=== PATIENT | male | born 1935 | race Caucasian/White ===

== ENCOUNTER 2016-09-24 17:27 | Inpatient (IN) ==
[2016-09-24] MEDS ORDERED: LACTATED RINGERS 1,000 ML IV ONE (17:56)
[2016-09-24] MEDS ORDERED: ONDANSETRON 4 MG/2 ML VIAL IV STA (17:56)
[2016-09-24] MEDS ORDERED: ONDANSETRON 4 MG/2 ML VIAL ONE (18:02)
--- NOTE | 2016-09-24 18:03 | General Surg History&Physical ---
Assessment and Plan (1) Symptomatic cholelithiasis Status: Acute Assessment and plan: This patient has symptomatic cholelithiasis. Preliminary report on ultrasound is that there are stones present though I have not seen the images myself. We will go ahead and get lab work and give the patient some IV fluids and I do believe he will have to have his gallbladder removed to prevent worsening episodes in the future but whether this needs to happen on an inpatient or an outpatient basis will be determined based on the rest of his results of his tests. Current Visit: Yes History of Present Illness Chief complaint: Abdominal pain History of present illness: Mr. Lai is a 80 year old male with a history of reflux and esophageal stricture with dilation as well as a history of alcohol use who presents to the ER with the second episode of severe midepigastric pain that radiates through to the back with nausea and vomiting. Patient denies any jaundice or scleral icterus or changes in the quality of his urine or stool. He denies fevers but did have Reiger's with both episodes in the last one was 3 weeks ago and lasted about a day. Current episode started today this morning after he had some grilled cheese for breakfast and [place] He does admit to drinking a bloody Colleen last night. He denies any history of NSAID use but then later states that he used Aleve earlier today. He has never had any abdominal surgery but he does have a history of prostate cancer that was treated with radiation. Home Medications Medication Instructions Recorded Confirmed Type Allopurinol 100 mg PO DAILY 09/24/16 09/24/16 History Aspirin 325 mg PO DAILY 09/24/16 09/24/16 History Atenolol 1 tablet PO DAILY 09/24/16 09/24/16 History Allergies Allergy/AdvReac Type Severity Reaction Status Date / Time Tetracycline Allergy Unknown/Unable Verified 09/24/16 17:50 to obtain Medical,Surgical,& Family Hx - Medical History Cardio: History of: Hypertension Rheumatology: History of;: Gout Genitourinary: History of: Prostate Problems (prostate CA remission for 10 years ) - Social History Smoking Status: Never smoker Frequency of Alcohol Use: Occasionally Type of Drug Use: None Exam - Constitutional Vitals: Period Temp Pulse Resp BP Sys/[place] Pulse Ox Last 24 Hr 98.8 F-98.8 F 86-86 20-20 151-151/81-81 98 General appearance: no acute distress, over weight - Head Head exam: Present: normal inspection, normocephalic - Eye Eye exam: Present: EOMI Pupils: Present: SEBASTIEN - ENT ENT exam: Present: normal exam Mouth exam: Present: normal external inspection, normal voice - Neck Neck exam: Present: normal inspection, trachea midline - Respiratory Respiratory exam: Present: clear to auscultation bilaterally. Absent: accessory muscle use, chest wall tenderness - Cardiovascular Cardiovascular exam: Present: RRR. Absent: systolic murmur, tachycardia - GI/Abdominal GI/Abdominal exam: Present: normal bowel sounds, tenderness (There is minimal midepigastric tenderness.), soft, other (There is a reducible umbilical hernia present.). Absent: distended, Hobson's sign - Extremities Exam Extremities exam: Present: normal inspection, normal capillary refill - Back Exam Back exam: Present: normal inspection - Neurological Exam Neurological exam: Present: alert, oriented X3 Speech: Present: normal - Skin Skin exam: Present: normal color, warm - Constitutional Constitutional: Present: as per HPI - EENT Nose, mouth and throat: Present: as per HPI - Cardiovascular Cardiovascular: Present: as per HPI - Respiratory Respiratory: Present: as per HPI - Gastrointestinal Gastrointestinal: Present: as per HPI - Genitourinary Genitourinary: Present: as per HPI - Musculoskeletal Musculoskeletal: Present: as per HPI - Neurological Neurological: Present: as per HPI - Endocrine Endocrine: Present: as per HPI Hematologic/Lymphatic: Present: as per HPI Quality Measures - Stroke Onset of Symptoms Date: 09/24/16 Onset of Symptoms Time: 12:00
[2016-09-24] MEDS ORDERED: HYDROmorphone 2 MG/1 ML VIAL ONE (18:06)
--- NOTE | 2016-09-24 18:08 | Ultrasound Report ---
US gallbladder Indication: Recurrent right upper quadrant and epigastric pain. Comparison: None. Technique: Using transcutaneous probe, ultrasound imaging of the right upper quadrant was performed. Ultrasound images were captured and stored. Imaged structures include the liver, gallbladder, pancreas, right kidney, aorta, and inferior vena cava. Findings: Images submitted of the liver demonstrate hyperechoic liver parenchyma compared to the right renal cortex. No focal hepatic mass is present. Common bile duct is enlarged measuring 5.6 mm. Within the gallbladder, there is at least one echogenic focus with posterior shadowing near the neck of the gallbladder as well as small echogenic foci within the gallbladder fundus. Echogenic debris and/or sludge additionally is present. The gallbladder wall is thickened measuring 5.4 mm. On some images, a very thin curvilinear focus of hypoattenuation is noted along the exterior surface of the gallbladder wall. Small amount of pericholecystic fluid is not excluded. The right kidney measures 11.75 cm in craniocaudal dimension. The aorta and inferior vena cava are not included on study. The pancreas is not identified secondary to bowel gas. Impression: 1. Multiple gallstones are present. This finding in the setting of thickened gallbladder wall and perhaps a minimal amount of pericholecystic fluid is considered compatible with acute cholecystitis. 2. Findings compatible with hepatic steatosis. 09/24/2016 6:03 PM PROCEDURE INTERPRETED AT [facility] DEPARTMENT OF RADIOLOGY Final Report Signed by: Dr. Luis Daniel Alexander
[2016-09-24 18:11] LABS: Basophils % 0.1 % (0.0-0.8); Eosinophils % 0.1 % (0.00-10.9); Hematocrit 42.8 VOL% (42.0-52.0); Hemoglobin 14.9 GM/DL (14.0-18.0); Immature Granulocytes % 0.6 %; Immature Granulocytes Absolute 0.06 #; Lymphocytes # 0.3 10*3/uL (1.4-4.0); Lymphocytes % 2.6 % (21.2-54.2); Mean Corpuscular HGB Conc 34.8 GM/DL (32-36); Mean Corpuscular Hemoglobin 31 PG (27-34); Mean Corpuscular Volume 89.5 FL (87-102); Monocytes # 0.2 10*3/uL (0.11-0.8); Monocytes % 1.5 % (1.7-12.7); Neutrophils # 9.7 10*3/uL (1.4-7.4); Neutrophils % 95.1 % (38.7-73.9); Platelet Count 177 T/CUMM (130-400); Red Blood Count 4.78 MC/CUMM (3.8-5.5); Red Cell Distribution Width 13.2 % (9.3-17.3); White Blood Count 10.2 T/CUMM (4-12)
[2016-09-24] MEDS ORDERED: PIPERACILLIN/TAZOBACTAM 3,375 MG in SODIUM CHLORIDE 0.9% 100 ML IV STA (18:17)
--- NOTE | 2016-09-24 18:20 | Emergency Department Note ---
Arrival - Arrival Chief Complaint: Abdominal / Flank Pain ED Nursing Triage Note: pt complains of pain to right upper quadrant started today at noon, states that he had a baked chicken sandwich, co dryheaves, vomitted once, repots no fever but has been having chills and rigors. Mode of Arrival: Wheelchair Time Seen by Provider: 09/24/16 17:28 - History of Present Illness HPI Narrative: 80-year-old male brought in by family for recurrent epigastric or right upper quadrant pain, 2 episodes last 3 weeks, first episode lasted less than a day and resolved and today started has not yet resolved. Somewhat improved with belching but this is temporary. Denies fever trouble breathing chest pain or lower abdominal pain. Denies constipation or diarrhea. Denies history of abdominal surgeries. Allergies/Adverse Reactions: Allergies Allergy/AdvReac Type Severity Reaction Status Date / Time Tetracycline Allergy Unknown/Unable Verified 09/24/16 17:50 to obtain Home Medications: Home Medications Medication Instructions Recorded Confirmed Type Allopurinol 100 mg PO DAILY 09/24/16 09/24/16 History Aspirin 325 mg PO DAILY 09/24/16 09/24/16 History Atenolol 1 tablet PO DAILY 09/24/16 09/24/16 History Review of System - Review of System 12 point system: reviewed and no additional remarkable complaints except as stated Medical,Surgical,& Family Hx - Medical History Medical History: noncontributory Cardio: History of: Hypertension Rheumatology: History of;: Gout Genitourinary: History of: Prostate Problems (prostate CA remission for 10 years ) - Social History Smoking Status: Never smoker Frequency of Alcohol Use: Occasionally Type of Drug Use: None Exam Physical Examination: Well-appearing elderly male, no acute distress. Vital signs as documented.Lungs are clear bilaterally. Cardiovascular regular rate and rhythm. Abdomen soft with epigastric and mild right upper quadrant tenderness without rigidity or rebound. Skin exam unremarkable. Vital Signs: Vital Signs Temperature 98.8 F 09/24/16 17:27 Pulse Rate 86 09/24/16 17:27 Respiratory Rate 20 09/24/16 17:27 Blood Pressure 151/81 09/24/16 17:27 O2 Sat by Pulse Oximetry 98 09/24/16 17:27 Course Course Narrative: Patient evaluated by general surgeon transportation analyst who will admit for probable cholecystectomy based on ultrasound of gallstones and recurrent symptoms. Results - Labs CBC & BMP: 09/24/16 17:55 Lab Results: I have reviewed the patients labs - Diagnostic Findings Procedure: Ultrasound: report reviewed by me (gallstones, poss choleycystitis) Disposition Clinical Impression: Symptomatic cholelithiasis, Abdominal pain Case discussed with: patient Disposition: Still a Patient Condition: Stable Time of Disposition: 18:19
[2016-09-24 18:33] LABS: Band Neutrophils 7 % (0-10); Lymphocytes 1 % (20-55); Myelocytes 1 %; Platelet Estimate Adequate; Segmented Neutrophils 89 % (50-85); Total Cells Counted 100
--- NOTE | 2016-09-24 18:57 | XRay Report ---
XR chest 1V Indication: Chest pain. Comparison: Chest x-ray 02/19/2009 Technique: Portable AP chest was performed. Findings: The heart is stable in size compared to previous study. Mild ectasia of the thoracic aorta is stable. Pulmonary vasculature demonstrates no specific abnormality. Hilar structures demonstrate fairly symmetric appearance. The lungs appear clear. Bones and soft tissues demonstrate no evidence of acute pathology. Impression: 1. No evidence of acute pathology. 09/24/2016 6:40 PM PROCEDURE INTERPRETED AT [facility] DEPARTMENT OF RADIOLOGY Final Report Signed by: Dr. Luis Daniel Alexander
[2016-09-24 19:35] LABS: Albumin 3.7 G/DL (3.4-5.0); Bilirubin,Total 2.9 MG/DL (0.2-1.0); Calcium 8.7 MG/DL (8.5-10.1); Osmolality,Calculated 277.8 MOS/KG (273-304); Potassium 3.9 MMOL/L (3.5-5.1); Total Protein 6.6 G/DL (6.4-8.3)
[2016-09-24 21:25] LABS: INR 1.1; PT Patient Result 11.5 SECS
[2016-09-24] MEDS: LACTATED RINGERS 1,000 ML IV SCH (21:53)
[2016-09-25 01:27] LABS: Basophils % 0.1 % (0.0-0.8); Hematocrit 38.2 VOL% (42.0-52.0); Hemoglobin 12.7 GM/DL (14.0-18.0); Immature Granulocytes % 0.8 %; Immature Granulocytes Absolute 0.14 #; Lymphocytes # 0.3 10*3/uL (1.4-4.0); Lymphocytes % 1.7 % (21.2-54.2); Mean Corpuscular HGB Conc 33.2 GM/DL (32-36); Mean Corpuscular Hemoglobin 30 PG (27-34); Mean Corpuscular Volume 90.5 FL (87-102); Monocytes # 1.3 10*3/uL (0.11-0.8); Monocytes % 7.2 % (1.7-12.7); Neutrophils # 16.7 10*3/uL (1.4-7.4); Neutrophils % 90.2 % (38.7-73.9); Platelet Count 153 T/CUMM (130-400); Red Blood Count 4.22 MC/CUMM (3.8-5.5); Red Cell Distribution Width 13.5 % (9.3-17.3); White Blood Count 18.5 T/CUMM (4-12)
[2016-09-25 01:34] LABS: INR 1.1; Partial Thromboplastin Time 25.9 SECS (0-40)
[2016-09-25 01:52] LABS: Bilirubin,Direct 2.9 MG/DL (0.0-0.20); Total Protein 5.2 G/DL (6.4-8.3)
[2016-09-25 01:53] LABS: Osmolality,Calculated 280.7 MOS/KG (273-304); Potassium 4.2 MMOL/L (3.5-5.1)
[2016-09-25] MEDS: PIPERACILLIN/TAZOBACTAM 3,375 MG in SODIUM CHLORIDE 0.9% 100 ML IV SCH ×3 (02:38→18:45)
[2016-09-25] MEDS ORDERED: LACTATED RINGERS 1,000 ML IV ONE ×2 (06:59→13:15)
[2016-09-25] MEDS: LACTATED RINGERS 1,000 ML IV SCH ×2 (07:43→18:45)
--- NOTE | 2016-09-25 08:10 | EKG Report ---
Stationary ECG Study [facility] Test Date: 09/24/2016 6:45:53 PM Pat Name: ARI CRUZ Department: Room: 341 Gender: M Sort Manager: : [id number] Requested by: Gus Azar Order Number: [id number] Reading MD: DOMINIQUE HUDDLESTON Intervals [place] Rate: 92 P: 47 DC: 202 QRS: -39 QRSD: 98 T: 57 QT: 319 QTc: 369 Interpretive Statements SINUS RHYTHM MARKED LEFT AXIS DEVIATION LOW QRS VOLTAGE IN PRECORDIAL LEADS Electronically Signed On 09-26-16 22:21:13 CDT by DOMINIQUE HUDDLESTON [email or web address]
[2016-09-25] MEDS: ASPIRIN 325 MG TABLET PO SCH (08:17)
[2016-09-25 08:22] LABS: Band Neutrophils 10 % (0-10); Lymphocytes 3 % (20-55); Myelocytes 1 %; Segmented Neutrophils 81 % (50-85); Total Cells Counted 100
[2016-09-25 08:23] LABS: Hypochromasia Slight; Ovalocytes Slight; Platelet Estimate Normal
[2016-09-25] MEDS: ATENOLOL 25 MG TABLET PO SCH (08:30)
[2016-09-25] MEDS: PANTOPRAZOLE 40 MG VIAL IV SCH (08:31)
[2016-09-25] MEDS ORDERED: SUCCINYLCHOLINE 200 MG/10 ML VIAL ONE (11:15)
[2016-09-25] MEDS ORDERED: ETOMIDATE 20 MG/10 ML VIAL IV ONE (11:15)
[2016-09-25] MEDS ORDERED: LIDOCAINE 1% 5 ML VIAL ONE (11:15)
[2016-09-25] MEDS ORDERED: ROCURONIUM 100 MG/10 ML VIAL IV ONE (11:15)
[2016-09-25] MEDS ORDERED: ONDANSETRON 4 MG/2 ML VIAL ONE ×2 (11:15→12:31)
--- NOTE | 2016-09-25 12:14 | General Surgery Progress Note ---
Assessment and Plan (1) Symptomatic cholelithiasis Status: Acute Assessment and plan: The patient is pain-free this morning but his white blood cell count did go up to 18,000 and his creatinine bumped a little bit to 1.4. He will be resuscitated today with another liter of LR. His bilirubin also went up and his transaminases went down a little bit but his alkaline phosphatase is also rising. He had a borderline bile duct of 6 mm which is really not enlarged for his age but based on his worsening bilirubin I would like to get Dr. Hudson to see him for a preoperative ERCP. I will discuss this with Dr. Hudson shortly. Current Visit: Yes Subjective Patient reports: Present: no new complaints, feels better, pain is less, tolerating liquids well, afebrile. Absent: nausea, vomiting, fever Exam - Constitutional Vitals: Period Temp Pulse Resp BP Sys/[place] Pulse Ox Last 24 Hr 98.2 F-98.8 F 77-86 17-20 99-151/57-81 97-98 General appearance: no acute distress, over weight - Head Head exam: Present: normal inspection, normocephalic - Eye Eye exam: Present: EOMI. Absent: scleral icterus Pupils: Present: SEBASTIEN - ENT ENT exam: Present: normal exam Mouth exam: Present: normal external inspection, normal voice - Neck Neck exam: Present: normal inspection, trachea midline - Respiratory Respiratory exam: Present: clear to auscultation bilaterally. Absent: accessory muscle use, chest wall tenderness - Cardiovascular Cardiovascular exam: Present: RRR. Absent: systolic murmur, tachycardia - GI/Abdominal GI/Abdominal exam: Present: soft. Absent: Hobson's sign, tenderness, rebound - Extremities Exam Extremities exam: Present: normal inspection, normal capillary refill - Back Exam Back exam: Present: normal inspection - Neurological Exam Neurological exam: Present: alert, oriented X3 Speech: Present: normal - Skin Skin exam: Present: normal color, warm Results - Labs CBC & BMP: 09/25/16 00:18 09/25/16 00:18 Quality Measures - Stroke Onset of Symptoms Date: 09/24/16 Onset of Symptoms Time: 12:00
--- NOTE | 2016-09-25 12:19 | Gastrointestinal Consult Note ---
Addendum entered and electronically signed by Rufus Hudson MD 09/25/16 10: 16: Patient seen and examined. Symptomatic gallstones with high suspicion for possible common duct stone. Will proceed with ERCP today to clear the duct in preparation for cholecystectomy as discussed. Risks, benefits and alternatives have been reviewed with the patient and the family and they are agreeable to proceed. Abdomen is soft with mild epigastric tenderness no rebound Agree with additional history physical findings per Sherrill Bruce [facility] as below. Original Note: <Sherrill Raman D - Last Filed: 09/25/16 09:24> Assessment and Plan (1) Symptomatic cholelithiasis Status: Acute Assessment and plan: 09/25-sudden onset of upper abdominal pain with associated nausea vomiting. Findings of elevated LFTs and cholelithiasis. Proceed with ERCP today. Plan an addendum to follow by Dr. Hudson. Current Visit: Yes History of Present Illness Chief complaint: Abdominal pain History of present illness: Mr. Lai is a 80 year old male who was admitted to the hospital last night after sudden onset of upper abdominal pain with nausea vomiting. Patient states that he was in his usual state of health until yesterday around lunchtime. He states that he did not feel very well however felt like maybe he needed to eat lunch. Shortly after eating lunch she had an onset of upper abdominal pain radiating to his back. He states that the pain improved and he went on to play golf however shortly after starting he had onset of nausea and vomiting. He then presented to the emergency room for further evaluation. Patient states that he has had this episode once before 3 weeks prior however it only occurred one time and felt at that time it was possibly a stomach virus. He denies any family history of gallbladder disease. Upon admission he was found to have elevated liver enzymes. Gallbladder ultrasound showed multiple gallstones with thickened gallbladder wall compatible with acute cholecystitis as well as hepatic steatosis. Common bile duct was 5.6 mm. WBC elevated today at 18.5. Bilirubin is 4, AST 354, ALT 359, and alkaline phosphatase 144. Lipase level was unremarkable at 322. Dr. Bella is consulted with the patient and at this time the plan is to proceed with laparoscopic cholecystectomy on tomorrow. Dr. Hudson at bedside and discussed proceeding with the ERCP today. Family and patient are in agreement. Patient does have a history of esophageal stricture in the past with dilation and is requesting to have repeat dilation today if findings of stricture noted. He denies any regular dysphagia symptoms at this time. Home Medications Medication Instructions Recorded Confirmed Type Allopurinol 100 mg PO DAILY 09/24/16 09/24/16 History Aspirin 325 mg PO DAILY 09/24/16 09/24/16 History Atenolol 1 tablet PO DAILY 09/24/16 09/24/16 History Allergies Allergy/AdvReac Type Severity Reaction Status Date / Time Tetracycline Allergy Unknown/Unable Verified 09/24/16 17:50 to obtain Medical,Surgical,& Family Hx - Medical History Cardio: History of: Hypertension HEENT: History of: Eye Problem (bilateral cataract removal) Rheumatology: History of;: Gout Genitourinary: History of: Prostate Problems (prostate CA remission for 10 years ) Gastrointestinal: History of: GERD - Surgical History HEENT Surgeries: Surgical HX of: Tonsilectomy & Adenoidectomy Abdominal Surgeries: Surgical HX of: Colonoscopy, EGD Orthopedic Surgeries: Surgical HX of;: Orthopedic Surgery (Left ankle ORIF, hardware removal) - Family History Family History: Reports;: Family Diabetes (Father, late onset diabetic) - Social History Smoking Status: Never smoker Frequency of Alcohol Use: Occasionally Type of Drug Use: None 12 point system: reviewed and no additional remarkable complaints except as stated - Constitutional Constitutional: Present: as per HPI - EENT Eyes: Present: as per HPI Ears: Present: as per HPI Nose, mouth and throat: Present: as per HPI - Cardiovascular Cardiovascular: Present: as per HPI - Respiratory Respiratory: Present: as per HPI - Gastrointestinal Gastrointestinal: Present: as per HPI, abdominal pain, nausea, vomiting - Genitourinary Genitourinary: Present: as per HPI - Musculoskeletal Musculoskeletal: Present: as per HPI - Neurological Neurological: Present: as per HPI - Psychiatric Psychiatric: Present: as per HPI - Endocrine Endocrine: Present: as per HPI - Hematologic/Lymphatic Hematologic/Lymphatic: Present: as per HPI Exam - Constitutional Vitals: Period Temp Pulse Resp BP Sys/[place] Pulse Ox Last 24 Hr 97.0 F-98.8 F 63-86 17-20 99-151/53-81 97-100 General appearance: normal weight, no acute distress - Head Head exam: Present: normal inspection, normocephalic - Eye Eye exam: Present: other (Lids and conjunctive are unremarkable). Absent: scleral icterus - ENT ENT exam: Present: normal exam, normal oropharynx - Neck Neck exam: Present: normal inspection - Respiratory Respiratory exam: Present: clear to auscultation bilaterally. Absent: rales, rhonchi, wheezes - Cardiovascular Cardiovascular exam: Present: regular rate and rhythm. Absent: diastolic murmur , JVD, systolic murmur - GI/Abdominal GI/Abdominal exam: Present: normal bowel sounds, soft. Absent: ascites, distended, mass, organomegaly, tenderness - Extremities Exam Extremities exam: Present: normal inspection, full ROM - Back Exam Back exam: Present: normal inspection - Neurological Exam Neurological exam: Present: alert, oriented X3 - Psychiatric Psychiatric exam: Present: normal affect, normal mood - Skin Skin exam: Present: normal color, warm, dry Results - Labs CBC & BMP: 09/25/16 00:18 09/25/16 00:18 Lab Results: I have reviewed the past 24 hour labs - Diagnostic Findings Procedure: Ultrasound: report reviewed by me Quality Measures - Stroke Onset of Symptoms Date: 09/24/16 Onset of Symptoms Time: 12:00 <Rufus Hudson - Last Filed: 09/25/16 10:15> History of Present Illness History of present illness: Mr. Lai is a 80 year old male Exam - Constitutional Vitals: Period Temp Pulse Resp BP Sys/[place] Pulse Ox Last 24 Hr 97.0 F-98.8 F 63-86 17-20 99-151/53-81 97-100 Results - Labs CBC & BMP: 09/25/16 00:18 09/25/16 00:18
--- NOTE | 2016-09-25 12:24 | Operative Note ---
Date of procedure: 09/25/16 Pre-op diagnosis: Cholelithiasis was suspected choledocholithiasis Procedure: Endoscopic retrograde cholangiopancreatography 80-year-old gentleman admitted with abdominal pain thought to have symptomatic cholelithiasis with abnormal liver tests suspicious for choledocholithiasis. Now for ERCP to further evaluate. Informed symptoms obtained from the patient. He was sedated with general anesthesia per anesthesia protocol. Patient placed in the prone position the Olympus duodenal scope was inserted through the normal-appearing esophagus stomach duodenum to what appears to be a fairly flat ampulla that is difficult to approach with a short scope requiring a bit of a longer scope to reach this area. There appears to have possibly a prior sphincterotomy performed although I have no history to suggest this. The sphincterotome was utilized and the common bile duct was easily cannulated revealing a nondilated common bile duct common hepatic duct and normal intrahepatic ductal radicles. The cystic duct was patent and multiple large gallstones were seen in the gallbladder consistent with cholelithiasis. Multiple views were obtained and was no evidence to suggest any filling defects or strictures and it was elected to not proceed with sphincterotomy at this time with good drainage of the duct. No pancreatogram was obtained. The procedure terminated patient discharge recovery in good condition Postop diagnosis: 1. Cholelithiasis without evidence of choledocholithiasis on ERCP. Proceed with cholecystectomy per Dr. Bella's plan. Surgeon / Physician: Rufus Hudson Results - Labs CBC & BMP: 09/25/16 00:18 09/25/16 00:18 Discharge Plan - Discharge Medications No Action Atenolol 1 tablet PO DAILY Aspirin 325 mg PO DAILY Allopurinol 100 mg PO DAILY - Follow Up or Referral - Forms/Instructions
--- NOTE | 2016-09-25 12:24 | Anesthesia Post-Op ---
Anesthesia Post OP - Post Ansesthetic Evaluation Patient seen in post op: Yes Resp: within normal limits CV: within normal limits Mental: within normal limits Temp: within normal limits [id number]: within normal limits Nausea and Vomiting: within normal limits Pain: within normal limits
[2016-09-25] MEDS: HYDROmorphone 2 MG/1 ML VIAL IV PRN (12:44)
[2016-09-25] MEDS: ONDANSETRON 4 MG/2 ML VIAL IV PRN ×2 (12:47→20:01)
[2016-09-25] MEDS ORDERED: TISSUE ADHESIVE 1 EACH APPLICATOR TOP ONE (13:02)
[2016-09-25] MEDS ORDERED: BUPIVACAINE MPF 0.25% /EPI 30 ML VIAL ONE (13:03)
[2016-09-25] MEDS ORDERED: MEPERIDINE 50 MG/1 ML VIAL IV ONE (13:10)
--- NOTE | 2016-09-25 13:18 | Event Note ---
I went to see this patient following ERCP and he had decrease oxygen saturations with rigors and chills. Temp, HR, and BP was normal. Complaining of back pains. No nausea or vomiting. ERCP with no CBD stones and cystic duct was patent. Chest is clear, heart is regular. No chest pain. Will move to ICU 108 and obtain labwork and imaging as well as administer demerol and LR bolus.
--- NOTE | 2016-09-25 14:08 | Fluoroscopy Report ---
Exam: [place] ERCP Date: 09/25/2016 9:22 AM Comparison: Gallbladder ultrasound 09/24/2016 Indication: Elevated liver function tests, gallstones Technique:[Fluoroscopy time of 2.03 minutes documented. 7 films were obtained.] Findings: 18 cc of nonionic contrast injected into the nondilated ducts by Dr. Hudson. Sphincterotomy performed with advancement of guidewire and balloon catheter. Evidence of cholelithiasis with patent cystic duct. No persistent filling defects are identified in the bile ducts with no stone extraction. No contrast injected into the pancreatic duct. Impression: Cholelithiasis with no evidence of choledocholithiasis or other pathology. PROCEDURE INTERPRETED AT [facility] DEPARTMENT OF RADIOLOGY Final Report Signed by: Dr. Colleen Woody
--- NOTE | 2016-09-25 14:09 | XRay Report ---
Portable chest Date: 09/25/2016 Clinical history: Low O2, chills Comparison: 09/24/2016 Technique: Portable AP sitting chest Findings: The heart remains minimally enlarged with left ventricular prominence and uncoiling of the aorta. Minimal atelectasis/infiltration in the left mid to lower lung zone. Stable mediastinum with degenerative changes. Impression: Cardiomegaly with left ventricular prominence and uncoiling of the aorta. Minimal atelectasis/infiltration in the left mid to lower lung zone. PROCEDURE INTERPRETED AT [facility] DEPARTMENT OF RADIOLOGY Final Report Signed by: Dr. Colleen Woody
[2016-09-25 14:20] LABS: Basophils % 0.2 % (0.0-0.8); Eosinophils # 0.1 10*3/uL (0.0-0.87); Eosinophils % 0.7 % (0.00-10.9); Hematocrit 36.9 VOL% (42.0-52.0); Hemoglobin 12.6 GM/DL (14.0-18.0); Immature Granulocytes % 1.5 %; Immature Granulocytes Absolute 0.15 #; Lymphocytes # 0.2 10*3/uL (1.4-4.0); Lymphocytes % 1.8 % (21.2-54.2); Mean Corpuscular HGB Conc 34.1 GM/DL (32-36); Mean Corpuscular Hemoglobin 31 PG (27-34); Mean Corpuscular Volume 90.4 FL (87-102); Mean Platelet Volume 9.4 FL (9.6-12.0); Monocytes # 0.1 10*3/uL (0.11-0.8); Monocytes % 1.2 % (1.7-12.7); Neutrophils # 9.7 10*3/uL (1.4-7.4); Neutrophils % 94.6 % (38.7-73.9); Platelet Count 132 T/CUMM (130-400); Red Blood Count 4.08 MC/CUMM (3.8-5.5); Red Cell Distribution Width 13.8 % (9.3-17.3); White Blood Count 10.3 T/CUMM (4-12)
[2016-09-25 14:51] LABS: Calcium 7.7 MG/DL (8.5-10.1); Osmolality,Calculated 277.7 MOS/KG (273-304); Potassium 3.8 MMOL/L (3.5-5.1); Total Protein 5.3 G/DL (6.4-8.3)
[2016-09-25 15:04] LABS: Band Neutrophils 13 % (0-10); Burr Cells Few; Eosinophils 2 % (0-10); Lymphocytes 5 % (20-55); Platelet Estimate Decreased; Poikilocytosis 1+; Segmented Neutrophils 80 % (50-85); Total Cells Counted 100
[2016-09-25 15:54] LABS: ABG Base Excess -0.4 MMOL/L (-2.5-2.5); ABG HCO3 24.1 MMOL/L (20-26); ABG Oxygen Saturation 98.1 % (95-100); ABG PCO2 39.5 MM HG (35-48); ABG PH 7.398 (7.35-7.45); ABG TCO2 21.4 MMOL/L (23-27); Allen Test Positive
[2016-09-25 16:00] LABS: Apearance,Urine CLEAR (Clear); Bacteria,Urine Occasional /HPF (Few); Blood, Urine Negative (Negative); Glucose,Urine (UA) Negative (Negative); Ketones,Urine Negative (Negative); Nitrite,Urine Negative (Negative); Protein,Urine 30 MG/DL; RBC,Urine 3 /HPF (0-4); Squamous Epithelial Cell,Urine Occasional /HPF (0-10); Urine Color Amber (Yellow); Urine Specific Gravity 1.019 (1.001-1.035); WBC,Urine 5 /HPF (0-6)
[2016-09-25 16:01] LABS: Bilirubin,Urine Moderate mg/dL (Negative)
--- NOTE | 2016-09-25 18:24 | Event Note ---
Patient seen at 2 PM following episode of some hypotension and clamminess. He appeared stable at that time. Currently his symptoms have resolved since that time. He currently is having no complaints of pain is afebrile he is saturation is good. He was noted to have some question of left lower lobe infiltrate on repeat chest x-ray which may simply represent some atelectasis but also could be some infiltrate that has now become visible with hydration. He is currently on antibiotics for the possibility of cholecystitis that may have been exacerbated by ERCP. I discussed with Dr. Bella. Agree with plans to proceed with cholecystectomy. I think he has passed a common duct stone given the patulousness of his ampulla. We did discuss that his duodenum is a little bit fixed and we were not able to adequately evaluate the pancreas and he will take some care to look in that region during surgery. Possibly repeat CT can certainly be entertained. Abdomen soft lungs clear to auscultation heart regular rate and rhythm Repeat lab bilirubin has gone up some which again I suspect may be related to cholecystitis we will continue to observe. Continue antibiotics. And proceed with cholecystectomy per Dr. marcus plan. Can consider CT scan if symptoms persist.
[2016-09-25] MEDS: ALBUTEROL/IPRATROPIUM 3 ML NEB RESP TX SCH (19:21)
[2016-09-25] MEDS: diphenhydrAMINE CAP 50 MG CAPSULE PO PRN (20:05)
[2016-09-26] MEDS: ALBUTEROL/IPRATROPIUM 3 ML NEB RESP TX SCH ×4 (00:36→19:35)
[2016-09-26] MEDS: LACTATED RINGERS 1,000 ML IV SCH ×3 (02:50→10:10)
[2016-09-26] MEDS: PIPERACILLIN/TAZOBACTAM 3,375 MG in SODIUM CHLORIDE 0.9% 100 ML IV SCH ×3 (03:09→19:27)
[2016-09-26 06:38] LABS: Basophils % 0.2 % (0.0-0.8); Eosinophils # 0.2 10*3/uL (0.0-0.87); Eosinophils % 1.5 % (0.00-10.9); Hematocrit 35.3 VOL% (42.0-52.0); Hemoglobin 11.9 GM/DL (14.0-18.0); Immature Granulocytes % 1.5 %; Immature Granulocytes Absolute 0.24 #; Lymphocytes # 0.7 10*3/uL (1.4-4.0); Lymphocytes % 4.7 % (21.2-54.2); Mean Corpuscular HGB Conc 33.7 GM/DL (32-36); Mean Corpuscular Hemoglobin 31 PG (27-34); Mean Platelet Volume 9.5 FL (9.6-12.0); Monocytes # 1.1 10*3/uL (0.11-0.8); Monocytes % 6.7 % (1.7-12.7); Neutrophils # 13.5 10*3/uL (1.4-7.4); Neutrophils % 85.4 % (38.7-73.9); Platelet Count 108 T/CUMM (130-400); Red Blood Count 3.88 MC/CUMM (3.8-5.5); White Blood Count 15.8 T/CUMM (4-12)
--- NOTE | 2016-09-26 06:47 | XRay Report ---
Referring Physician: TEODORA Zavala Exam: XR chest 1V portable Date: September 26, 2016 at 2:51 AM Reason: Follow-up infiltrate Comparison: Chest one view portable September 25, 2016 Findings: The cardiac silhouette is again mildly enlarged, and there is persistent mild elevation of the right hemidiaphragm. There are minimal opacities within both lower lung zones, mainly on the left. This likely represents atelectasis, but pneumonia is difficult to exclude within the left lower lung zone. No pneumothorax is identified, but there may be mild left pleural fluid. The osseous structures appear stable. Impression: There may be mild left pleural fluid today. The study is otherwise similar to before. PROCEDURE INTERPRETED AT [facility] DEPARTMENT OF RADIOLOGY Final Report Signed by: Dr. Laura Downing
[2016-09-26] MEDS ORDERED: BUPIVACAINE MPF 0.25% /EPI 30 ML VIAL ONE (06:53)
[2016-09-26 07:10] LABS: Albumin 2.7 G/DL (3.4-5.0); Bilirubin,Total 5.8 MG/DL (0.2-1.0); Calcium 7.8 MG/DL (8.5-10.1); Potassium 3.7 MMOL/L (3.5-5.1); Total Protein 5.2 G/DL (6.4-8.3)
[2016-09-26 07:17] LABS: Band Neutrophils 24 % (0-10); Eosinophils 1 % (0-10); Hypochromasia Slight; Lymphocytes 7 % (20-55); Microcytosis 1+; Platelet Estimate Decreased; Segmented Neutrophils 61 % (50-85); Total Cells Counted 100
--- NOTE | 2016-09-26 07:28 | Event Note ---
Patient in the waiting area for surgery. Discussed with Dr. Bella agree with plans for cholecystectomy. Hemodynamically stable stable with no history of difficulties overnight. Liver tests remain elevated suspect from his acute cholecystitis would expect improvement following surgery. I will be out of town until Thursday call coverage if needed.
--- NOTE | 2016-09-26 07:30 | General Surgery Progress Note ---
Assessment and Plan (1) Symptomatic cholelithiasis Status: Acute Assessment and plan: This is a delayed entry note. I saw the patient at 6:30 in the morning prior to his operation. His bilirubin is improving and we have plans for laparoscopic cholecystectomy with cholangiogram today. Current Visit: Yes Subjective Patient reports: Present: no new complaints, feels better, pain is less, tolerating liquids well, afebrile Exam - Constitutional Vitals: Period Temp Pulse Resp BP Sys/[place] Pulse Ox Last 24 Hr 95.9 F-98.1 F 63-87 11-26 86-131/61-082 92-100 General appearance: no acute distress, over weight - Head Head exam: Present: normal inspection, normocephalic - Eye Eye exam: Present: EOMI Pupils: Present: SEBASTIEN - ENT ENT exam: Present: normal exam Mouth exam: Present: normal external inspection, normal voice - Neck Neck exam: Present: normal inspection, trachea midline - Respiratory Respiratory exam: Present: clear to auscultation bilaterally. Absent: accessory muscle use, chest wall tenderness - Cardiovascular Cardiovascular exam: Present: RRR. Absent: systolic murmur, tachycardia - GI/Abdominal GI/Abdominal exam: Present: soft. Absent: Hobson's sign, tenderness, rebound - Extremities Exam Extremities exam: Present: normal inspection, normal capillary refill - Back Exam Back exam: Present: normal inspection - Neurological Exam Neurological exam: Present: alert, oriented X3 Speech: Present: normal - Skin Skin exam: Present: normal color, warm Results - Labs CBC & BMP: 09/26/16 06:27 09/26/16 06:27 - Diagnostic Findings Procedure: Chest x-ray: image reviewed by me, report reviewed by me (atelectasis ) Quality Measures - Stroke Onset of Symptoms Date: 09/24/16 Onset of Symptoms Time: 12:00
--- NOTE | 2016-09-26 08:25 | Fluoroscopy Report ---
Referring Physician: Ryan Bella Exam: [place] cholangiogram in surgery Date: September 26, 2016 Reason: Abdominal pain Comparison: ERCP September 25, 2016, gallbladder ultrasound September 24, 2016 Findings: 197 images of the right abdomen were provided after performance of an intraoperative cholangiogram. Fluoroscopy time was 10 seconds. The extrahepatic and intrahepatic bile ducts are normal in caliber with no stricture identified. There are several small filling defects within the common hepatic and common bile duct, which were favored to represent air during surgery. This makes evaluation for a biliary stone difficult. Impression: Images are presumed satisfactory for the purposes of the procedure. PROCEDURE INTERPRETED AT [facility] DEPARTMENT OF RADIOLOGY Final Report Signed by: Dr. Laura Downing
[2016-09-26] MEDS ORDERED: SUGAMMADEX 200 MG/2 ML VIAL IV ONE (09:01)
--- NOTE | 2016-09-26 09:07 | Operative Note ---
Date of procedure: 09/26/16 Pre-op diagnosis: Acute cholecystitis Post-op diagnosis: same Procedure: Preoperative diagnosis Acute cholecystitis with abnormal bilirubin Postoperative diagnosis Same Procedures performed Laparoscopic cholecystectomy with intraoperative cholangiogram Findings Acute and chronic cholecystitis was seen. The critical view of safety was obtained prior to placing clips on the cystic duct and cystic artery. Cholangiogram revealed no filling defects although there were some air bubbles that were not concerning for stones at all. There was good flow into the duodenum. There was no strictures of the bile duct. The pancreatic duct was not visualized. The first and second portion of the duodenum were palpated as was the head of the pancreas through the stomach and lesser sac and there was no firmness in the retroperitoneum or bulging in the retroperitoneum. There were no abnormalities on diagnostic laparoscopy throughout the abdomen. The patient had some edema of his cords so he was given Decadron 10 mg IV by the anesthesia team and we will watch him in the ICU tonight to make sure there are no airway issues. We will make sure his head is elevated as well. Complications None apparent Specimen Gallbladder Anesthesia GETA Blood loss 5 mL Indications Acute cholecystitis with elevated bilirubin. The risks, benefits, and alternatives of the operation were discussed with the patient in detail, and the expected outcomes were reviewed. In particular, the risk of bowel injury, liver injury, bile duct leak and bile duct injury, as well as pancreatitis and retained or drop stones were discussed in detail. All the patient's questions were answered. She like to proceed with the operation. Description of procedure The patient was taken to the operating room and transferred to the operating table in the supine position. Pressure points were padded and SCDs were placed to bilateral lower extremities. General endotracheal anesthesia was administered. The abdomen was prepped chlorhexidine and draped sterilely. Preoperative antibiotics were administered, a timeout was performed. The abdomen was entered in a supraumbilical location of the Veress needle. The skin incision was made in the supraumbilical location with a 11 blade scalpel after local anesthetic was administered. Umbilical stalk was grasped with a penetrating towel clip. A Veress needle was used to enter the peritoneal cavity confirmed by double click technique. Aspiration was negative. Saline drop test confirmed intraperitoneal location. The abdomen was insufflated to 15 mmHg with an initial insufflation pressure of 2 mmHg. The Veress needle was removed and a 5 mm trocar was placed blindly. The towel clip was removed. Diagnostic laparoscopy was performed. There is no evidence of Veress needle or trocar injury. The patient was placed in reverse Trendelenburg and left side rolled down position. Under direct visualization, and after local anesthetic was administered, an 11 mm midepigastric trocar and 2 right subcostal 5 mm trochars were placed. There was acute inflammation of the gallbladder and it was very adherent to the duodenum and colon but these adhesions came down easily and there was no firmness in the duodenum or the colon mesentery. The first and second portion of the duodenum were palpated as was the head of the pancreas through the stomach and lesser sac and there was no firmness or bulging in the retroperitoneum at these locations. There were no peritoneal implants or abnormalities on diagnostic laparoscopy. The gallbladder was grasped at the fundus and infundibulum. The cystic plate peritoneum was dissected into the critical view of safety was obtained. The cystic duct and cystic artery were clipped twice initially and once laterally and divided laparoscopically with scissors between clips. Gallbladder was removed from the gallbladder fossa using hook electrocautery. The gallbladder was very friable and tore some but no stones were spilled. There was no obvious gangrene of the gallbladder. The gallbladder was placed in a Endo Catch retrieval bag through the 11 mm trocar and removed through the trocar with a small amount of extension of the fascial incision at the midepigastrium. The gallbladder fossa was suction irrigated until the effluent was clear. The CO2 was released from the abdomen and the trochars were removed. The fascial defect was closed in 2 layers at the midepigastric trocar site with 0 Vicryl sutures. The posterior fascia was closed with a [id number]-[id number] suture in the anterior fascia was closed afterwards with another vxhrwz-go-pnkyu suture. The skin incisions were closed with 4-0 Monocryl subcuticular suture and sterile skin glue. The patient was awakened from anesthesia and transferred to recovery. Postoperative plan Advance diet as tolerated Elevate head of bed and monitor for airway problems Pain control Implants: surgicel Anesthesia: GETA Surgeon / Physician: Ryan Bella Estimated blood loss: minimal Specimens: none sent (gallbladder) Condition: stable Disposition: ICU Results - Labs CBC & BMP: 09/26/16 06:27 09/26/16 06:27 Discharge Plan - Discharge Medications No Action Atenolol 1 tablet PO DAILY Aspirin 325 mg PO DAILY Allopurinol 100 mg PO DAILY - Follow Up or Referral - Forms/Instructions
[2016-09-26] MEDS ORDERED: ePHEDrine 50 MG/ML AMP ONE (09:23)
[2016-09-26] MEDS ORDERED: SEVOFLURANE 1 UNIT/15 MINUTE INH ONE (09:25)
[2016-09-26] MEDS ORDERED: ONDANSETRON 4 MG/2 ML VIAL ONE (09:25)
[2016-09-26] MEDS ORDERED: DEXAMETHASONE 10 MG/1 ML VIAL ONE (09:25)
[2016-09-26] MEDS ORDERED: PROPOFOL 200 MG/20 ML VIAL IV ONE (09:25)
[2016-09-26] MEDS ORDERED: NEOSTIGMINE 10 MG/10 ML VIAL ONE (09:26)
[2016-09-26] MEDS ORDERED: ROCURONIUM 100 MG/10 ML VIAL IV ONE (09:26)
[2016-09-26] MEDS ORDERED: ETOMIDATE 20 MG/10 ML VIAL IV ONE (09:26)
[2016-09-26] MEDS ORDERED: GLYCOPYRROLATE 0.4 MG/2 ML VIAL ONE (09:26)
[2016-09-26] MEDS ORDERED: METOPROLOL TARTRATE 5 MG/5 ML VIAL IV ONE (09:26)
[2016-09-26] MEDS ORDERED: KETOROLAC 30 MG/1 ML VIAL ONE (09:27)
[2016-09-26] MEDS ORDERED: LACTATED RINGERS 1,000 ML IV ONE (09:27)
[2016-09-26] MEDS: ONDANSETRON 4 MG/2 ML VIAL IV PRN (10:20)
[2016-09-26] MEDS: HYDROmorphone 2 MG/1 ML VIAL IV PRN (10:22)
--- NOTE | 2016-09-26 10:28 | Anesthesia Post-Op ---
Anesthesia Post OP - Post Ansesthetic Evaluation Patient seen in post op: Yes Resp: within normal limits CV: within normal limits Mental: within normal limits Temp: within normal limits [id number]: within normal limits Nausea and Vomiting: within normal limits Pain: within normal limits
[2016-09-26] MEDS: ASPIRIN 325 MG TABLET PO SCH (12:20)
[2016-09-26] MEDS: ATENOLOL 25 MG TABLET PO SCH (12:20)
[2016-09-26] MEDS: PANTOPRAZOLE 40 MG VIAL IV SCH (12:20)
[2016-09-26] MEDS: diphenhydrAMINE CAP 50 MG CAPSULE PO PRN (21:12)
[2016-09-27] MEDS: LACTATED RINGERS 1,000 ML IV SCH ×2 (01:10→04:39)
[2016-09-27] MEDS: PIPERACILLIN/TAZOBACTAM 3,375 MG in SODIUM CHLORIDE 0.9% 100 ML IV SCH (04:38)
[2016-09-27 06:17] LABS: Basophils % 0.1 % (0.0-0.8); Hematocrit 34.2 VOL% (42.0-52.0); Hemoglobin 11.5 GM/DL (14.0-18.0); Immature Granulocytes % 2.1 %; Immature Granulocytes Absolute 0.24 #; Lymphocytes # 0.3 10*3/uL (1.4-4.0); Lymphocytes % 2.9 % (21.2-54.2); Mean Corpuscular HGB Conc 33.6 GM/DL (32-36); Mean Corpuscular Hemoglobin 30 PG (27-34); Mean Corpuscular Volume 88.8 FL (87-102); Mean Platelet Volume 10.2 FL (9.6-12.0); Monocytes # 0.7 10*3/uL (0.11-0.8); Monocytes % 6.6 % (1.7-12.7); Neutrophils # 9.9 10*3/uL (1.4-7.4); Neutrophils % 88.3 % (38.7-73.9); Platelet Count 115 T/CUMM (130-400); Red Blood Count 3.85 MC/CUMM (3.8-5.5); Red Cell Distribution Width 13.7 % (9.3-17.3); White Blood Count 11.2 T/CUMM (4-12)
[2016-09-27 06:45] LABS: Band Neutrophils 7 % (0-10); Hypochromasia 1+; Lymphocytes 4 % (20-55); Nucleated Red Blood Cells 1 (0-5); Segmented Neutrophils 87 % (50-85); Total Cells Counted 100
[2016-09-27 06:46] LABS: Microcytosis 1+; Ovalocytes Slight; Platelet Estimate Adequate
[2016-09-27 06:55] LABS: Albumin 2.6 G/DL (3.4-5.0); Calcium 8.1 MG/DL (8.5-10.1); Osmolality,Calculated 279.7 MOS/KG (273-304); Potassium 3.9 MMOL/L (3.5-5.1); Total Protein 5.2 G/DL (6.4-8.3)
[2016-09-27] MEDS: ALBUTEROL/IPRATROPIUM 3 ML NEB RESP TX SCH ×2 (07:59→08:00)
[2016-09-27 08:17] VITALS: BP 152/86
--- NOTE | 2016-09-27 08:35 | Discharge Summary ---
Hospital Course - Hospital Course Hospital Course: This patient was admitted with acute cholecystitis and elevated bilirubin and he was placed on antibiotics. He was taken for an ERCP for rising bilirubin which showed evidence of possible recent stone. He developed an episode post procedure where he was having Reiger's and turned cyanotic and was transferred to the ICU. Blood cultures were drawn and the episode resolved relatively quickly. He stabilized and was taken to the operating room the next day for laparoscopic cholecystectomy with intraoperative cholangiogram which revealed normal biliary anatomy with no filling defects. There is no strictures of the bile duct. The pancreatic duct was not seen on ERCP or the cholangiogram in the OR. Patient did well postoperatively and was transferred to the floor and discharged home once he was tolerating his diet and his pain is well controlled. His blood cultures did come back in 1 out of 2 bottles gram negative rods so he was discharged home on a 2 week course of ciprofloxacin and Flagyl and also given a prescription for pain medication Diagnosis - Discharge Diagnosis (1) Symptomatic cholelithiasis Status: Acute Discharge Plan - Discharge Data Disposition: Disch To Home/Self Care Condition at Discharge: Stable Discharge Diet: advance to your usual diet Activity: no lifting (no lifting over 20 pounds for 4 weeks) Hygiene: may shower Weight Bearing at Discharge: full weight bearing Driving: no restrictions Contact your physician if you experience:: fever over 101, Difficulty voiding, Redness or swelling, Nausea/Vomiting, Shortness of breath, Bleeding, pain uncontrolled by pain medications Wound / Dressing Care Instructions: It is okay to shower. Do not scrub the incision aggressively or submerge it under water. - Discharge Medications New HYDROcodone/ACETAMIN 7.5-325 [[place] 7.5-325] 1 tablet PO Q4H PRN #30 tablet PRN Reason: Pain Moderate (4-7) Ciprofloxacin Tab [Cipro Tab] 500 mg PO BID #28 tablet Continue Atenolol 1 tablet PO DAILY Aspirin 325 mg PO DAILY No Action Allopurinol 100 mg PO DAILY - Follow Up or Referral Follow Up: Ryan Bella MD [Physician] - 2 Weeks - Forms/Instructions Exam - Constitutional Vitals: Period Temp Pulse Resp BP Sys/[place] Pulse Ox Last 24 Hr 96.6 F-98.9 F 64-92 10-24 117-152/75-101 92-100 General appearance: no acute distress, over weight - Head Head exam: Present: normal inspection, normocephalic - Eye Eye exam: Present: EOMI Pupils: Present: SEBASTIEN - ENT ENT exam: Present: normal exam - Neck Neck exam: Present: normal inspection - Respiratory Respiratory exam: Present: clear to auscultation bilaterally, accessory muscle use. Absent: chest wall tenderness - Cardiovascular Cardiovascular exam: Present: regular rate and rhythm. Absent: systolic murmur , tachycardia - GI/Abdominal GI/Abdominal exam: Present: normal bowel sounds, tenderness (Expected postoperative tenderness), soft. Absent: rebound - Extremities Exam Extremities exam: Present: normal inspection, normal capillary refill - Back Exam Back exam: Present: normal inspection - Neurological Exam Neurological exam: Present: alert, oriented X3 - Psychiatric Psychiatric exam: Present: normal affect, normal mood - Skin Skin exam: Present: normal color, warm Discharge Results Procedures and tests throughout hospitalization: Pending Orders 09/25/16 14:00 Blood Culture Stat 09/28/16 04:00 CMP [Comprehensive Metabolic Panel] IN AM Comp Blood Count Auto Diff IN AM 09/29/16 04:00 CMP [Comprehensive Metabolic Panel] IN AM Comp Blood Count Auto Diff IN AM 09/30/16 04:00 CMP [Comprehensive Metabolic Panel] IN AM Comp Blood Count Auto Diff IN AM Labs on day of discharge: Labs from last 24 hours 09/27/16 09/27/16 05:36 05:36 WBC 11.2 RBC 3.85 Hgb 11.5 L Hct 34.2 L MCV 88.8 MCH 30 MCHC 33.6 RDW 13.7 Plt Count 115 L MPV 10.2 Neut % (Auto) 88.3 H Lymph % (Auto) 2.9 L Morrill % (Auto) 6.6 Eos % (Auto) 0.0 Baso % (Auto) 0.1 Neut # (Auto) 9.9 H Lymph # (Auto) 0.3 L Morrill # (Auto) 0.7 Eos # (Auto) 0.0 Baso # (Auto) 0.0 Total Counted 100 Immature Gran % 2.1 Nucleated RBC % 0.0 Immature Gran # 0.24 Segmented Neutrophils 87 H Band Neutrophils 7 Lymphocytes 4 L Monocytes 2 Nucleated RBCs 1 Nucleated RBCs # 0.00 Platelet Estimate Adequate Hypochromasia 1+ Microcytosis 1+ Ovalocytes Slight Sodium 138 Potassium 3.9 Chloride 104 Carbon Dioxide 25 Anion Gap 12.9 BUN 15 Creatinine 0.90 GFR Calculation 105 BUN/Creatinine Ratio 16.00 Glucose 166 H Calculated Osmolality 279.7 Calcium 8.1 L Total Bilirubin 2.00 H AST 85 H ALT 213 H Alkaline Phosphatase 127 H Total Protein 5.2 L Albumin 2.6 L Globulin 2.6 Albumin/Globulin Ratio 1.0 L Preliminary micro results at discharge 09/25/16 14:00 Blood Culture - Preliminary Blood Gram Negative Rods 09/25/16 14:00 Blood Culture - Preliminary Blood No growth at 1 day DS: Provider Date of admission: 09/24/16 18:11 Primary care physician: Yogesh Albright, Attending physician on admission: Ryan Bella MD Consults: 09/25/16 06:59 Consult to Physician [CONS] Routine Comment: ercp Consulting Provider: Rufus Hudson Consulting Provider Notified: Yes When should Consulting Provider be notified: Now Person Notified: jacquelyn called Date Notified: 09/25/16 Time Notified: 08:42 Discharging clinician: Ryan Bella MD Expected date of discharge: 09/27/16
[2016-09-27] MEDS: ATENOLOL 25 MG TABLET PO SCH (09:07)
[2016-09-27] MEDS: ASPIRIN 325 MG TABLET PO SCH (09:07)
[2016-09-27] MEDS: PANTOPRAZOLE 40 MG VIAL IV SCH (09:07)
--- NOTE | 2016-09-30 12:22 | Pathology Report from [facility] ---
[facility] ACCESSION # : [id number] PATIENT NAME : Ari Lai ORDERING DR : Ryan Bella MD CLINICAL HX: Symptomatic cholelithiasis POST-OP DX: Same SPECIMEN INFO: Gallbladder GROSS DESCRIPTION: The specimen is received in formalin labeled with the patients name and consists of an opened gallbladder measuring 8.0 x 3.5 cm. The serosa is smooth and fatty. The wall averages 0.3 cm in thickness. The mucosal surface is red-del rosario with multiple brown-del rosario stones noted measuring up to 2.0 cm. Drawer In St[employer]ing Machine sections submitted in one cassette. DIAGNOSIS FOR ARI LAI: GALLBLADDER, CHOLECYSTECTOMY: Acute and chronic cholecystitis. Adjacent lymph node with reactive hyperplasia and lipophagic changes. COLLECTED DATE: 09/26/2016 [facility] REPORT DATE: 09/30/2016 ELECTRONICALLY SIGNED BY: Marciano Oliva M.D. 09/30/2016 - 10:13:02 NAHOMY
--- NOTE | 2016-10-01 15:00 | Physician Query Form ---
CLICK EDIT DOCUMENT TO SELECT QUERY ANSWER --> OK --> SIGN Millicent Alexander RN, CCDS Certified Clinical Magnetic Resonance Imaging Coordinator W) [phone] (f) [phone] [email or web address] PROVIDERS: Make your selection(s) from the choices in EACH section by typing an "x" and enter comments in the comment section. Please use your independent medical judgment in providing your response. This request does not imply that any particular answer is desired or expected. CLINICAL INDICATORS: (Providers should not edit this section) The medical record indicates that the patient was admitted with cholelithiasis, after ERCP developed rigors, chills, WBC (15.8) on the with 24 Bands, Lactic Acid increased to 2.3 on the , some Hypotension, and the patient was placed in ICU/ treated with LR bolus (1,000 cc). One positive blood culture for Klebsiella Oxytoca Please clarify which, if any, of the following is the etiology of the above symptoms and treatment rendered: ( ) Sepsis due to a localized infection, please specify infection: ( ) Severe Sepsis (sepsis with acute organ failure) - Please specify type acute organ failure: ( ) Septic Shock (severe sepsis with hypotension) ( ) SIRS of noninfectious origin ( ) Sepsis due to a device, implant or graft, please specify: ( ) Localized infection only, without systemic illness, please specify infection : (x) Bacteremia (abnormal lab finding only, does not indicate systemic illness) ( ) Other condition, please specify: ( ) Clinically unable to determine Criteria for Sepsis (SIRS due to an infection) should be based on 2 or more of the following being present: Temperature > 101F or < 96.8F WBC > 12,000 or < 4,000, or > 10% bands Tachycardia HR > 90 beats/minute Tachypnea RR > 20 breaths/minute or PaCO2 > 32mmHg Lactate level > 2.0 mmol/L (>4 is equivalent to severe sepsis) Altered Mental Status Mottling of skin or prolonged capillary refill Non-diabetic hyperglycemia (blood sugar >120 mg/dl) Other evidence of acute organ failure associated with sepsis ( severe sepsis) COMMENTS: PLEASE ALSO DOCUMENT RESPONSE IN PROGRESS NOTES AND/OR DISCHARGE SUMMARY Use of terms such as suspected, likely, or probable (associated with a specific diagnosis that is being evaluated, monitored, or treated as if it exists) are acceptable and can be restated in the discharge summary if not ruled out. MTDD
== END 2016-09-27 09:25 | disposition home or self-care (01) | DRG 418 ==
LOC: N.ED 17:27 → N.EDINP 18:11 → N.3E 19:47 → N.ICU 09-25 13:26 → N.3E 09-26 20:21
PROVIDERS: ADMIT Surgery; ATTEND Surgery
PROC: LAPCHOL (2016-09-26 07:11)